=== PATIENT | male | born 1990 | race Caucasian/White ===

== ENCOUNTER → 2016-07-19 | Outpatient (REF) | payer OTHER ==
[2016-07-19 13:46] LABS: MEAN CORPUSCULAR HEMOGLOBIN 29.6 pg (27.0-33.0); MEAN CORPUSCULAR HGB CONC 34.2 g/dl (32.0-36.5); MEAN CORPUSCULAR VOLUME 86.4 fl (80.0-96.0); RED CELL DISTRIBUTION WIDTH 12.5 % (11.5-14.5); WHITE BLOOD COUNT 6.4 K/mm3 (4.0-10.0)
[2016-07-19 14:12] LABS: ALBUMIN 4.5 GM/DL (3.2-5.2); ALBUMIN/GLOBULIN RATIO 1.32 (1.00-1.93); ALKALINE PHOSPHATASE 64 U/L (45-117); ALT/SGPT 33 U/L (12-78); ANION GAP 7 MEQ/L (8-16); AST/SGOT 23 U/L (15-37); BILIRUBIN,TOTAL 0.3 MG/DL (0.2-1.0); BLOOD UREA NITROGEN 18 MG/DL (7-18); CALCIUM LEVEL 8.9 MG/DL (8.5-10.1); CARBON DIOXIDE LEVEL 28 MEQ/L (21-32); CHLORIDE LEVEL 107 MEQ/L (98-107); CHOLESTEROL LEVEL 169 MG/DL (<200); CREATININE FOR GFR 0.86 MG/DL (0.70-1.30); GLOMERULAR FILTRATION RATE > 60.0 (>60); GLUCOSE, FASTING 82 MG/DL (70-105); POTASSIUM SERUM 4.3 MEQ/L (3.5-5.1); SODIUM LEVEL 142 MEQ/L (136-145); TOTAL PROTEIN 7.9 GM/DL (6.4-8.2); TRIGLYCERIDES LEVEL 49 MG/DL (<150)
[2016-07-28 10:15] LABS: DQ2(DQ1A 0501/0505,DQB1 02XX) Negative (.); DQ8(DQA1 03XX, DQB1 0302) Negative (.)
== END ==
LOC: M SFHCPLAZ 10:26
PROVIDERS: ATTEND Nurse Practitioner Adult Health
DX: Z00.00 Encounter for general adult medical examination without abnormal findings (principal); R19.4 Change in bowel habit

== ENCOUNTER → 2016-07-20 | Outpatient (CLI) | payer OTHER ==
--- NOTE | 2016-07-20 12:04 | REP ---
Clinical: Lower back pain. Comparison: 05/19/2010 . Technique: AP, lateral, bilateral oblique, and coned-down views. Findings: Alignment and lordosis is maintained. The vertebral bodies including transverse process and spinous processes are intact and normal. There is no evidence for acute fracture / compression injury or subluxation. No evidence for spondylolysis or spondylolisthesis. No significant degenerative change is noted although mild disc space narrowing at the L5-S1 level should be correlated with symptomatology. Impression: 1. Essentially normal lumbosacral spine radiograph series. 2. Minimal disc space narrowing at the L5-S1 level cannot be excluded and should be correlated with symptomatology. Signed by Andrea Yeager MD 07/20/2016 11:56 A
== END ==
LOC: M WUC 11:24
PROVIDERS: ATTEND Nurse Practitioner Adult Health
DX: M54.5 Low back pain (principal)

== ENCOUNTER → 2016-08-01 | Outpatient (REF) | payer OTHER | LOC: M LABDRAW1 11:06 | PROVIDERS: ATTEND Nurse Practitioner Adult Health | DX: R76.0 Raised antibody titer (principal) ==

== ENCOUNTER → 2018-12-12 | Outpatient (CLI) | payer OTHER ==
--- NOTE | 2018-12-13 00:46 | REP ---
Clinical: Left axillary swelling. Technique: Real time holden scale ultrasound examination using linear high frequency transducer. Findings: Directed ultrasound examination of the left axillary region at the site of maximal tenderness and palpable mass demonstrates no obvious abnormality. Normal subcutaneous tissue and musculature noted. No significant adenopathy, mass or fluid collection. Impression: Unremarkable examination. Electronically Signed by Andrea Yeager MD 12/13/2018 12:38 A
== END ==
LOC: M RAD 15:56
PROVIDERS: ATTEND Nurse Practitioner Adult Health
DX: M79.89 Other specified soft tissue disorders (principal)

== ENCOUNTER → 2022-09-21 | Outpatient (CLI) | payer BC ==
[2022-09-21 14:28] LABS: BASO # 0.1 10^3/uL (0.0-0.2); BASO % 0.8 % (0.0-1.0); EOS # 0.2 10^3/uL (0.0-0.5); HEMATOCRIT 45.8 % (42.0-52.0); HEMOGLOBIN 15.2 g/dl (13.5-17.5); LYMPH % 23.6 % (24.0-44.0); MEAN CORPUSCULAR HEMOGLOBIN 28.1 pg (27.0-33.0); MEAN CORPUSCULAR HGB CONC 33.2 g/dl (32.0-36.5); MEAN CORPUSCULAR VOLUME 84.8 fl (80.0-96.0); MONO # 0.8 10^3/uL (0.0-0.8); MONO % 9.1 % (2.0-8.0); NEUTROPHILS # 5.5 10^3/uL (1.5-8.5); NEUTROPHILS % 64.3 % (36.0-66.0); PLATELET COUNT, AUTOMATED 298 10^3/uL (150-450); WHITE BLOOD COUNT 8.5 10^3/uL (4.0-10.0)
[2022-09-21 14:54] LABS: THYROID STIMULATING HORMONE 2.233 uIU/ML (0.55-4.78)
[2022-09-21 14:56] LABS: ALBUMIN 4.3 G/DL (3.2-5.2); ALKALINE PHOSPHATASE 75 U/L (46-116); ALT/SGPT 38 U/L (7.0-40); AST/SGOT 18 U/L (<34); BILIRUBIN,TOTAL 0.3 MG/DL (0.3-1.2); BLOOD UREA NITROGEN 17 MG/DL (9-23); CALCIUM LEVEL 9.3 MG/DL (8.5-10.1); CARBON DIOXIDE LEVEL 24 MMOL/L (20-31); CHLORIDE LEVEL 106 MMOL/L (98-107); CHOLESTEROL LEVEL 188 MG/DL (<200); CHOLESTEROL RISK RATIO 4.73 (<5); CREATININE FOR GFR 0.84 MG/DL (0.70-1.30); FREE T4 1.11 NG/DL (0.89-1.76); GLOMERULAR FILTRATION RATE > 60.0 (>60); GLUCOSE, FASTING 98 MG/DL (60-100); HDL CHOLESTEROL 39.7 MG/DL (>40); LDL CHOLESTEROL 130.5 MG/DL (<100); NON-HDL-C 148.3 MG/DL; POTASSIUM SERUM 3.9 MMOL/L (3.5-5.1); SODIUM LEVEL 140 MMOL/L (136-145); TOTAL PROTEIN 7.7 G/DL (5.7-8.2); TRIGLYCERIDES LEVEL 89 MG/DL (<150)
== END ==
LOC: M PLALAB 09:56
PROVIDERS: ATTEND Nurse Practitioner Family
DX: M54.6 Pain in thoracic spine (principal); E78.5 Hyperlipidemia, unspecified

== ENCOUNTER → 2023-08-23 | Outpatient (CLI) | payer OTHER ==
[2023-08-23 07:45] LABS: LIPASE 48 U/L (12-53)
[2023-08-23 07:47] LABS: AMYLASE 56 U/L (30-118)
[2023-09-06 19:07] LABS: DEAMIDATED GLIADIN ABS, IgA 2.6 U/mL (<15.0); DEAMIDATED GLIADIN ABS, IgG < 1.0 U/mL (<15.0); IMMUNOGLOBULIN A CELIAC 418 mg/dL (47-310); t-TRANSGLUTAMINASE(tTG) IgA < 1.0 U/mL (<15.0); t-TRANSGLUTAMINASE(tTG) IgG < 1.0 U/mL (<15.0)
== END ==
LOC: M LAB 06:42
PROVIDERS: ATTEND Nurse Practitioner Adult Health
DX: R14.0 Abdominal distension (gaseous) (principal); R19.7 Diarrhea, unspecified

== ENCOUNTER → 2023-09-20 | Outpatient (CLI) | payer OTHER | LOC: M PLALAB 15:58 | PROVIDERS: ATTEND Nurse Practitioner Adult Health | DX: L71.9 Rosacea, unspecified (principal) ==

== ENCOUNTER → 2023-10-09 | Outpatient (CLI) | payer OTHER | LOC: M SLEEP HO 11:38 | PROVIDERS: ATTEND Nurse Practitioner Adult Health | DX: R53.83 Other fatigue (principal) ==

== ENCOUNTER → 2023-12-27 | Outpatient (CLI) | payer OTHER | LOC: M PLAIMG 08:27 | PROVIDERS: ATTEND Family Medicine | DX: M54.32 Sciatica, left side (principal) ==

== ENCOUNTER → 2024-03-20 | Outpatient (CLI) | payer OTHER | LOC: M PLAIMG 08:42 | PROVIDERS: ATTEND Nurse Practitioner Adult Health | DX: R07.81 Pleurodynia (principal) ==